=== PATIENT | female | born 1985 | race Caucasian/White ===

== ENCOUNTER → 2017-05-25 | Outpatient (CLI) | payer OTHER ==
[~2017-05-25] MED LIST: DOXY-233 PO; IBP600T1 PO; KCL20TCR PO; LEVO750T6 PO; METH0.2T45 PO; METR500T PO; MGX400T PO; POTA10TA36 PO
--- NOTE | 2017-05-25 16:17 | Diagnostic Imaging Report ---
EXAMINATION: Two views of the right ribs. INDICATION: Right rib pain near the axillary region. FINDINGS: No rib fracture is seen. The right hemithorax appears unremarkable. IMPRESSION: Unremarkable exam. Dictated by: Dictated on workstation # [id number]
== END ==
LOC: RAD 13:55
PROVIDERS: ATTEND Family Medicine
DX: R07.81 Pleurodynia (principal)
CPT/HCPCS: 71100

== ENCOUNTER → 2020-08-16 | Outpatient (CLI) | payer OTHER ==
--- NOTE | 2020-08-16 12:10 | Diagnostic Imaging Report ---
PROCEDURE: CT abdomen and pelvis without contrast. TECHNIQUE: Multiple contiguous axial images were obtained through the abdomen and pelvis without the use of intravenous contrast. Auto Exposure Controls were utilized during the CT exam to meet ALARA standards for radiation dose reduction. INDICATION: Left lower quadrant pain for one week. COMPARISON: No prior studies are available for comparison. FINDINGS: The lung bases are clear. No discrete liver mass is detected. Gallbladder is contracted. There is no biliary ductal dilatation. Pancreas and spleen are unremarkable. No adrenal mass is identified. No renal calculi or hydronephrosis is identified. Aorta is non-aneurysmal. The bowel loops are non-dilated. There is moderate stool throughout the colon suggestive of constipation. No definite inflammatory changes are seen. Appendix is visualized in the right lower quadrant and unremarkable. No definite CT findings to suggest acute diverticulitis are identified. The bladder is decompressed. Uterus is unremarkable. There is no free fluid or fluid collection. IMPRESSION: Moderate stool suggestive of constipation. No acute feature in the abdomen or pelvis is identified. Dictated by: Dictated on workstation # [id number]
== END ==
LOC: RAD 11:28
PROVIDERS: ATTEND Family Medicine
DX: K92.1 Melena (principal); R10.32 Left lower quadrant pain
CPT/HCPCS: 74176

== ENCOUNTER → 2021-02-07 | Outpatient (CLI) | payer OTHER ==
[~2021-02-07] MED LIST changes: +CATHETER FLUSH 10 ML SYR IV PRN
--- NOTE | 2021-02-07 13:34 | Diagnostic Imaging Report ---
INDICATION: Right upper quadrant pain and diarrhea. Patient was administered 5.4 mCi technetium 99m Choletec intravenously and imaging over the abdomen was performed. At 1 hour patient ingested one can of Ensure and gallbladder ejection fraction was calculated. There is homogeneous uptake of activity by the liver with prompt excretion of activity into the gallbladder and common duct. There is normal passage of activity into the small bowel. Gallbladder ejection fraction is normal at 75%. IMPRESSION: Normal HIDA scan and gallbladder ejection fraction. Dictated by: Dictated on workstation # [id number]
== END ==
LOC: CARD 09:25
PROVIDERS: ATTEND Family Medicine
DX: R10.11 Right upper quadrant pain (principal); R19.7 Diarrhea, unspecified
CPT/HCPCS: 78227; A9537

== ENCOUNTER 2021-06-13 09:12 | Outpatient (CLI) | payer OTHER ==
[~2021-06-13] VITALS: Ht 162.6 cm; Wt 68.0 kg
[~2021-06-13 09:12] MED LIST changes: -CATHETER FLUSH 10 ML SYR IV PRN
[2021-06-13 09:15] VITALS: BP 118/77
[2021-06-13] MEDS ORDERED: EPINEPHrine INJECTION 1 MG/ML AMP IM PRN (09:15)
[2021-06-13] MEDS ORDERED: CASIRIVIMAB/IMDEVIMAB 1,200 MG in NS (IVPB) 250 ML IV ONE (09:15)
[2021-06-13] MEDS ORDERED: ONDANSETRON 4 MG/2 ML (SDV) Z0FRAN IV PRN (09:15)
[2021-06-13] MEDS ORDERED: ACETAMINOPHEN 500 MG TAB (TYLENOL) PO PRN (09:15)
[2021-06-13] MEDS ORDERED: diphenhydrAMINE 50 MG/ML INJ (BENADRYL) IV PRN (09:15)
[2021-06-13 10:45] VITALS: BP 109/76
== END 2021-06-13 10:50 | disposition home or self-care (01) ==
LOC: INFUSION 09:12
PROVIDERS: ATTEND Nurse Practitioner Family
DX: U07.1 COVID-19 (principal)

== ENCOUNTER 2023-02-17 18:35 | Emergency (ER) | payer OTHER ==
[~2023-02-17] VITALS: Ht 162 cm; Wt 68.0 kg
--- NOTE | 2023-02-17 19:02 | ED Abdominal Pain ---
General Chief Complaint: Abdominal/GI Problems Stated Complaint: UPPER QUADRANT PAIN Nursing Triage Note: PT AMB TO TRIAGE CO OF ABD PAIN UPPER L SIDE 02/14. STATES STARTED YESTERDAY. PT DENIES FEVERS, N/V/D Source of Information: Patient, Old Records History of Present Illness Date Seen by Provider: Feb 17, 2023 Time Seen by Provider: 18:40 Initial Comments PT ARRIVES VIA POV FROM HOME C/O LUQ PAIN / PAIN UNDER LEFT RIBS X 2 DAYS PAIN IS CONSTANT, WORSE WITH SITTING OR LAYING DOWN NO RADIATION OF PAIN NO NAUSEA/VOMITING TOOK 4 DOSES OF MIRALAX THIS MORNING AND HAD BM, BUT NO IMPROVEMENT IN PAIN NO URINARY SYMPTOMS NO FEVER LMP --NOW, BEGAN 02/14/23. NORMAL. NO CONTROL PT IS AB 2--2ND TRIMESTER DEMISE X 2--BOTH REQUIRED D&C'S HAS NOT TAKEN ANYTHING FOR PAIN HAS NOT SOUGHT CARE UNTIL TONIGHT SYMPTOMS NO DIFFERENT TONIGHT HAS HAD PAIN SIMILAR, BUT NOT THIS BAD, AND WAS LOWER IN ABDOMEN LAST FOOD INTAKE WAS LAST NIGHT AT DINNER--EATING MADE PAIN WORSE LAST NIGHT SHE HAS BEEN DRINKING FLUIDS WELL ALL DAY TODAY. PCP; DR. RUTH Allergies and Home Medications Allergies Coded Allergies: NKANo Known Allergies (Unverified Allergy, Mild, 02/24/09) No Known Drug Allergies (Verified , 07/30/07) Patient Home Medication List Home Medication List Reviewed: Yes Doxycycline Monohydrate (Doxycycline Monohydrate) 100 Mg Tablet, 100 MG PO BID, (Reported) Entered as Reported by: HAVEN MACE on 05/18/12 113 Ibuprofen (Motrin) 600 Mg Tab, 600 MG PO Q6H PRN, (Reported) Entered as Reported by: HAVEN MACE on 05/18/12 1132 Magnesium Oxide (Mag Ox) 400 Mg Tab, 250 MG PO BID, (Reported) Entered as Reported by: HAVEN MACE on 05/18/12 113 Methylergonovine Maleate (Methergine Tab) 0.2 Mg Tab, 1 EACH PO Q6H, (Reported) Entered as Reported by: HAVEN MACE on 05/18/12 1132 Potassium Chloride (K-Dur) 10 Meq Tab.prt.sr, 1 EACH PO BID WITH MEALS, (Reported) Entered as Reported by: HAVEN MACE on 05/18/12 1132 Review of Systems Review of Systems Constitutional: no symptoms reported EENTM: No Symptoms Reported Respiratory: No Symptoms Reported Cardiovascular: See HPI, Chest Pain Gastrointestinal: See HPI, Abdominal Pain Genitourinary: No Symptoms Reported Musculoskeletal: see HPI, back pain Skin: no symptoms reported Psychiatric/Neurological: No Symptoms Reported Endocrine: No Symptoms Reported Hematologic/Lymphatic: No Symptoms Reported Past Vhqbtfc-Agapdx-Imsqjp Hx Patient Social History Tobacco Use?: Yes Tobacco type used: Cigarettes Smoking Status: Current Everyday Smoker Substance use?: No Alcohol Use?: Yes Alcohol Frequency: Rarely Pt feels they are or have been: No Past Medical History Surgery/Hospitalization HX: Surgeries: Yes ( X 2; D&C X 2) Section Respiratory: No Cardiac: No Neurological: No : No Last Menstrual Period: Feb 17, 2023 Hx : 4 Hx Para: 2 Hx Total # of Abortions (Sp): 2 (BOTH SECOND TRIMESTER DEMISE--BOTH REQUIRED D&C) Reproductive Disorders: No Genitourinary: No Gastrointestinal: No Musculoskeletal: No Endocrine: No HEENT: No Cancer: No Integumentary: No Family Medical History SOCIAL HISTORY: -SMOKES 1/2 PPD -ETOH--RARE USE -DRUGS--DENIES USE Physical Exam Vital Signs Vital Signs - First Documented 02/17/23 02/17/23 18:40 22:11 Temp 36.8 Pulse 91 Resp 18 B/P (MAP) 132/80 (97) Pulse Ox 100 O2 Delivery Room Air Capillary Refill : Less Than 3 Seconds Height/Weight/BMI Height: '" Weight: lbs. oz. kg; 25.00 BMI Method:Stated General Appearance: WD/WN, no apparent distress, thin HEENT: PERRL/EOMI; No scleral icterus (R), No scleral icterus (L), No pale conjunctivae (R), No pale conjunctivae (L) Neck: normal inspection Respiratory: normal breath sounds, no respiratory distress, no accessory muscle use, other (TENDERNESS ALONG LEFT LOWER RIBS--ANTERIOR/LATERAL/POSTERIOR) Cardiovascular: normal peripheral pulses, regular rate, rhythm, no edema, no JVD, no murmur Gastrointestinal: normal bowel sounds, soft; No distended, No guarding, No rebound; tenderness (LUQ AND LEFT FLANK TENDERNESS); No hernia, No mass Extremities: normal inspection, normal capillary refill Back: no vertebral tenderness, CVA tenderness (L) 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, no motor/sensory deficits, alert, normal mood/affect, oriented x 3 Skin: normal color, warm/dry Progress/Results/Core Measures Results/Orders Lab Results Laboratory Tests Test 02/17/23 18:56 02/17/23 19:00 Range/Units Urine Color YELLOW Urine Clarity CLEAR Urine pH 5.5 5-9 Urine Specific [place] 1.015 L 1.016-1.022 Urine Protein NEGATIVE NEGATIVE Urine Glucose (UA) NEGATIVE NEGATIVE Urine Ketones NEGATIVE NEGATIVE Urine Nitrite NEGATIVE NEGATIVE Urine Bilirubin NEGATIVE NEGATIVE Urine Urobilinogen 0.2 < = 1.0 MG/DL Urine Leukocyte Esterase NEGATIVE NEGATIVE Urine RBC (Auto) NEGATIVE NEGATIVE Urine RBC NONE /HPF Urine WBC 0-2 /HPF Urine Squamous Epithelial Cells 0-2 /HPF Urine Crystals NONE /LPF Urine Bacteria FEW H /HPF Urine Casts NONE /LPF Urine Mucus SMALL H /LPF Urine Culture Indicated YES Urine Opiates Screen NEGATIVE NEGATIVE Urine Oxycodone Screen NEGATIVE NEGATIVE Urine Methadone Screen NEGATIVE NEGATIVE Urine Propoxyphene Screen NEGATIVE NEGATIVE Urine Barbiturates Screen NEGATIVE NEGATIVE Ur Tricyclic Antidepressants Screen NEGATIVE NEGATIVE Urine Phencyclidine Screen NEGATIVE NEGATIVE Urine Amphetamines Screen NEGATIVE NEGATIVE Urine Methamphetamines Screen NEGATIVE NEGATIVE Urine Benzodiazepines Screen NEGATIVE NEGATIVE Urine Cocaine Screen NEGATIVE NEGATIVE Urine Cannabinoids Screen NEGATIVE NEGATIVE White Blood Count 7.8 4.3-11.0 10^3/uL Red Blood Count 5.27 H 3.80-5.11 10^6/uL Hemoglobin 15.3 11.5-16.0 g/dL Hematocrit 45 35-52 % Mean Corpuscular Volume 85 80-99 fL Mean Corpuscular Hemoglobin 29 25-34 pg Mean Corpuscular Hemoglobin Concent 34 32-36 g/dL Red Cell Distribution Width 12.8 10.0-14.5 % Platelet Count 267 130-400 10^3/uL Mean Platelet Volume 9.5 9.0-12.2 fL Immature Granulocyte % (Auto) 0 % Neutrophils (%) (Auto) 55 42-75 % Lymphocytes (%) (Auto) 31 12-44 % Monocytes (%) (Auto) 9 0-12 % Eosinophils (%) (Auto) 4 0-10 % Basophils (%) (Auto) 1 0-10 % Neutrophils # (Auto) 4.3 1.8-7.8 10^3/uL Lymphocytes # (Auto) 2.4 1.0-4.0 10^3/uL Monocytes # (Auto) 0.7 0.0-1.0 10^3/uL Eosinophils # (Auto) 0.3 0.0-0.3 10^3/uL Basophils # (Auto) 0.1 0.0-0.1 10^3/uL Immature Granulocyte # (Auto) 0.0 0.0-0.1 10^3/uL Sodium Level 139 135-145 MMOL/L Potassium Level 3.7 3.6-5.0 MMOL/L Chloride Level 105 98-107 MMOL/L Carbon Dioxide Level 24 21-32 MMOL/L Anion Gap 10 5-14 MMOL/L Blood Urea Nitrogen 8 7-18 MG/DL Creatinine 0.83 0.60-1.30 MG/DL Estimat Glomerular Filtration Rate 94 BUN/Creatinine Ratio 10 Glucose Level 93 70-105 MG/DL Calcium Level 9.8 8.5-10.1 MG/DL Corrected Calcium 9.4 8.5-10.1 MG/DL Magnesium Level 1.9 1.6-2.4 MG/DL Total Bilirubin 0.4 0.1-1.0 MG/DL Aspartate Amino Transf (AST/SGOT) 14 5-34 U/L Alanine Aminotransferase (ALT/SGPT) 13 0-55 U/L Alkaline Phosphatase 68 40-136 U/L C-Reactive Protein High Sensitivity 0.29 0.00-0.50 MG/DL Total Protein 7.7 6.4-8.2 GM/DL Albumin 4.5 3.2-4.5 GM/DL Amylase Level 37 25-125 U/L Lipase 15 8-78 U/L Serum Test, Qualitative NEGATIVE NEGATIVE Serum Alcohol < 10 <10 MG/DL Micro Results Microbiology 02/17/23 Urine Culture - Preliminary, Resulted Culture In Progress My Orders Orders - ROSE SALINAS DO Ed Iv/Invasive Line Start (02/17/23 18:42) Monitor-Rhythm Ecg Trace Only (02/17/23 18:42) Amylase (02/17/23 18:42) Cbc With Automated Diff (02/17/23 18:42) Comprehensive Metabolic Panel (02/17/23 18:42) Hs C Reactive Protein (02/17/23 18:42) Hcg,Qualitative Serum (02/17/23 18:42) Lipase (02/17/23 18:42) Magnesium (02/17/23 18:42) Ua Culture If Indicated (02/17/23 18:42) Alcohol (02/17/23 18:49) Drug Screen Stat (Urine) (02/17/23 18:49) Urine Culture (02/17/23 18:56) Ct Jade Chest/Noang Abd-Pelv W (02/17/23 19:26) Iohexol Injection (Omnipaque 350 Mg/Ml 1 (02/17/23 19:30) Ns (Ivpb) (Sodium Chloride 0.9% Ivpb Bag (02/17/23 19:30) Ketorolac Injection (Toradol Injection) (02/17/23 19:45) Medications Given in ED Vital Signs/I&O 02/17/23 02/17/23 18:40 22:11 Temp 36.8 36.5 Pulse 91 77 Resp 18 16 B/P (MAP) 132/80 (97) 137/68 Pulse Ox 100 100 O2 Delivery Room Air Blood Pressure Mean: 97 Progress Progress Note : Progress Note LABS INCLUDING CBC, CMP, AMYLASE/LIPASE, UA ARE ALL UNREMARKABLE CT SCAN ORDERED AND IS UNREMARKABLE MARKED DELAY IN OBTAINING CT RESULTS GIVEN TORADOL WITH IMPROVEMENT IN PAIN VITALS STABLE UNEVENTFUL ER STAY REVIEWED ALL TEST RESULTS, SYMPTOMATIC TREATMENT, MEDICATIONS, NEED FOR FOLLOW UP AND RETURN PRECAUTIONS. Diagnostic Imaging Comments CT CHEST ANGIOGRAM / ABDOMEN-PELVIS--PER FAXED RADIOLOGIST REPORT AT 2133 -NO ACUTE PROCESS -NO ANEURYSM -NO P.E. Reviewed: Reviewed by Me Departure Impression Primary Impression: Left-sided chest wall pain Additional Impression: LUQ abdominal pain Disposition: HOME, SELF-CARE Condition: Improved Departure-Patient Inst. Decision time for Depature: 22:05 Referrals: JOLEEN RUTH DO (PCP/Family) Primary Care Physician Patient Instructions: Chest Pain, Adult ED, Abdominal Pain, Adult ED, Costochondritis Add. Discharge Instructions: TYLENOL AND MOTRIN NEEDED FOR PAIN TAKE YOUR HOME MUSCLE RELAXANT AT NIGHT MOIST HEAT TO AREA AT 20 MINUTE INTERVALS FOLLOW UP WITH YOUR DR IN 2-3 DAYS IF NO BETTER, RETURN TO ER IF WORSE All discharge instructions reviewed with patient and/or family. Voiced understanding. ROSE SALINAS DO Feb 17, 2023 19:02
[2023-02-17 19:03] LABS: BASOPHILS # (AUTO) 0.1 10^3/uL (0.0-0.1); BASOPHILS % (AUTO) 1 % (0-10); EOSINOPHILS # (AUTO) 0.3 10^3/uL (0.0-0.3); EOSINOPHILS % (AUTO) 4 % (0-10); HEMATOCRIT 45 % (35-52); HEMOGLOBIN 15.3 g/dL (11.5-16.0); LYMPHOCYTES # (AUTO) 2.4 10^3/uL (1.0-4.0); LYMPHOCYTES % (AUTO) 31 % (12-44); MEAN CORPUSCULAR HEMOGLOBIN 29 pg (25-34); MEAN CORPUSCULAR HGB CONC 34 g/dL (32-36); MEAN CORPUSCULAR VOLUME 85 fL (80-99); MEAN PLATELET VOLUME 9.5 fL (9.0-12.2); MONOCYTES # (AUTO) 0.7 10^3/uL (0.0-1.0); MONOCYTES % (AUTO) 9 % (0-12); NEUTROPHILS # (AUTO) 4.3 10^3/uL (1.8-7.8); NEUTROPHILS % (AUTO) 55 % (42-75); PLATELET COUNT 267 10^3/uL (130-400); WHITE BLOOD COUNT 7.8 10^3/uL (4.3-11.0)
[2023-02-17 19:07] LABS: BILIRUBIN,URINE NEGATIVE (NEGATIVE); CLARITY,URINE CLEAR; COLOR,URINE YELLOW; GLUCOSE, URINE (UA) NEGATIVE (NEGATIVE); KETONES,URINE NEGATIVE (NEGATIVE); LEUKOCYTE ESTERASE ,URINE NEGATIVE (NEGATIVE); NITRITE,URINE NEGATIVE (NEGATIVE); PH,URINE 5.5 (5-9); PROTEIN,URINE NEGATIVE (NEGATIVE)
[2023-02-17 19:18] LABS: ALBUMIN 4.5 GM/DL (3.2-4.5); CHLORIDE 105 MMOL/L (98-107); POTASSIUM 3.7 MMOL/L (3.6-5.0)
[2023-02-17 19:19] LABS: SODIUM 139 MMOL/L (135-145)
[2023-02-17 19:20] LABS: AMYLASE 37 U/L (25-125); CALCIUM 9.8 MG/DL (8.5-10.1)
[2023-02-17 19:20] LABS: AMPHETAMINE SCREEN, URINE NEGATIVE (NEGATIVE); BARBITURATE SCREEN URINE NEGATIVE (NEGATIVE); BENZODIAZEPINES SCREEN URINE NEGATIVE (NEGATIVE); CANNABINOID SCREEN, URINE NEGATIVE (NEGATIVE); COCAINE SCREEN URINE NEGATIVE (NEGATIVE); METHADONE STAT NEGATIVE (NEGATIVE); OPIATE SCREEN URINE NEGATIVE (NEGATIVE); OXYCODONE STAT NEGATIVE (NEGATIVE); PROPOXYPHENE STAT NEGATIVE (NEGATIVE); TRICYCLIC ANTIDEPRESSANTS SCRE NEGATIVE (NEGATIVE)
[2023-02-17 19:21] LABS: GLUCOSE 93 MG/DL (70-105); TOTAL PROTEIN 7.7 GM/DL (6.4-8.2)
[2023-02-17 19:22] LABS: CARBON DIOXIDE 24 MMOL/L (21-32)
[2023-02-17 19:23] LABS: BILIRUBIN,TOTAL 0.4 MG/DL (0.1-1.0)
[2023-02-17 19:24] LABS: BACTERIA,URINE FEW /HPF; SQUAMOUS EPITHELIAL CELL,UR 0-2 /HPF; WBC,URINE 0-2 /HPF
[2023-02-17 19:24] LABS: ALKALINE PHOSPHATASE 68 U/L (40-136)
[2023-02-17 19:25] LABS: CREATININE SERUM 0.83 MG/DL (0.60-1.30); GFR ESTIMATED 94
[2023-02-17 19:26] LABS: BUN/CREATININE RATIO 10
[2023-02-17 19:28] LABS: ALANINE AMINOTRANSFERASE 13 U/L (0-55); MAGNESIUM 1.9 MG/DL (1.6-2.4)
[2023-02-17 19:29] LABS: LIPASE 15 U/L (8-78)
[2023-02-17] MEDS ORDERED: NS 100 ML (IVPB) BAG IV ONE (19:30)
[2023-02-17] MEDS ORDERED: IOHEXOL 350 MG/ML 100 ML (OMNIPAQUE 350) VIAL IV ONE (19:30)
[2023-02-17] MEDS ORDERED: KETOROLAC 30 MG/ML VIAL IVP ONE (19:45)
[2023-02-17 22:11] VITALS: BP 137/68
--- NOTE | 2023-02-17 23:40 | Diagnostic Imaging Report ---
CLINICAL INDICATION: Patient with left-sided chest pain and left upper quadrant pain since yesterday. No history of cancer or surgery. Exam: CT angiogram of the chest, abdomen, and pelvis performed with 75 cc Omnipaque 350 IV contrast. Coronal and oblique MIP images of the vasculature were created to better evaluate anatomy. Auto Exposure Controls were utilized during the CT exam to meet ALARA standards for radiation dose reduction. Comparison: CT scan of the abdomen and pelvis without contrast dated 08/16/2020. Findings: There is no evidence of pulmonary embolism. There is no thoracic aortic dissection or aneurysm. Lungs are clear. There is no pleural effusion pneumothorax. There is no mediastinal or axillary lymphadenopathy. Mediastinal structures and heart shows no significant abnormality. The liver, spleen, pancreas, gallbladder, and adrenal glands are unremarkable. Both kidneys are unremarkable with no hydronephrosis, mass, or stone. There is no intestinal obstruction. There is wall thickening involving the distal esophagus which may be related to contraction or incomplete distention. There is no intra-abdominal free air or free fluid. The appendix is unremarkable. The uterus and adnexal structures are unremarkable. The bladder is fluid-filled and unremarkable. There is no significant stool load. The extra-abdominal and extrapelvic soft tissue structures are unremarkable. The thoracic spine and lumbar spine show no significant abnormality. There is no bony abnormality involving the rib cage. IMPRESSION: 1: There is no CT evidence of acute thoracic, abdominal, or pelvic process. There is no thoracic aortic aneurysm or dissection. There is no abdominal aortic aneurysm or common iliac artery aneurysm. 2: There is no pulmonary embolism. Dictated by: Dictated on workstation # [id number]
== END 2023-02-17 22:11 | disposition home or self-care (01) ==
LOC: EDUNIT# 18:35 → ER 18:37
DX: R07.89 Other chest pain (principal); R10.12 Left upper quadrant pain; F17.210 Nicotine dependence, cigarettes, uncomplicated
CPT/HCPCS: 71275; 74177; 80053; 80306; 81000; 82150; 83690; 83735; 84703; 85025; 86141; 87088; 93041; G0480; 36415; 80320